=== PATIENT | female | born 1945 | race Two or more races ===

== ENCOUNTER → 2019-04-01 | Outpatient (CLI) | payer OTHER | END | disposition home or self-care (01) | LOC: TOM 09:17 | DX: R93.5 Abnormal findings on diagnostic imaging of other abdominal regions, including retroperitoneum (principal) ==

== ENCOUNTER 2019-07-20 13:39 | Outpatient (CLI) | payer OTHER | END 2019-07-20 13:43 | disposition home or self-care (01) | LOC: LAB 13:39 | DX: R10.31 Right lower quadrant pain (principal) ==

== ENCOUNTER → 2020-10-15 | Emergency (ER) | payer OTHER ==
[~2020-10-15] VITALS: Ht 157.5 cm; Wt 70.8 kg
[~2020-10-15] MED LIST: B COMPLEX1 EACH PO; FERROUS SULFAT325 MG PO; FORTAMET1000 MG PO; IRBESARTAN150 MG PO; METFORMIN HCL1000 M3 PO; RAMIPRIL10 MG PO; SIMVASTATIN20 MG PO; ST. JOSEPH ASPI81 M2 PO; VITAMIN D3250 MCG PO
== END | disposition home or self-care (01) ==
LOC: ER 11:47
DX: E11.9 Type 2 diabetes mellitus without complications (principal); L03.114 Cellulitis of left upper limb; S61.412A Laceration without foreign body of left hand, initial encounter; W26.0XXA Contact with knife, initial encounter; Y93.89 Activity, other specified; Y92.89 Other specified places as the place of occurrence of the external cause; Y99.8 Other external cause status; Z79.84 Long term (current) use of oral hypoglycemic drugs

== ENCOUNTER 2022-06-08 11:01 | Outpatient (CLI) | payer OTHER | END 2022-06-08 11:07 | disposition home or self-care (01) | LOC: RAD 11:01 | PROVIDERS: ATTEND Physical Medicine & Rehabilitation | DX: M53.3 Sacrococcygeal disorders, not elsewhere classified (principal); M54.59 Other low back pain ==

== ENCOUNTER 2024-06-08 09:55 | Outpatient (CLI) | payer OTHER | END 2024-06-08 10:01 | disposition home or self-care (01) | LOC: SONOGRAMA 09:55 | DX: E88.9 Metabolic disorder, unspecified (principal); E80.4 Gilbert syndrome; D64.9 Anemia, unspecified ==

== ENCOUNTER 2024-06-12 23:47 | Inpatient (IN) | payer OTHER ==
[~2024-06-12] VITALS: Ht 157.5 cm; Wt 157.9 kg
--- NOTE | 2024-06-13 00:05 | NUR ---
SE RECIBE FEMINA ALERTA Y ORIENTADA X3 CUAL REFIERE PRESENTA DOLOR ABD Y VOMITOS X3 DESDE LAS 7 PM. SE ANOOP S/V Y SE UBICA. PARAMEDICO VERBALIZA LE ADMINISTRARON ZOFRAN 4MG Y BENTYL 20MG @11:38PM.
--- NOTE | 2024-06-13 01:22 | NUR ---
SE NOTIFICA ESTUDIO ORDENADO.
[2024-06-13] MEDS ORDERED: FAMOtidine 10 MG/ML (4ML VIAL) IV PUSH STA (01:24)
[2024-06-13] MEDS ORDERED: HYOSCYAMINE SULFATE 0.125 MG TAB.SUBL SL ONE (01:30)
[2024-06-13] MEDS ORDERED: HYOSCYAMINE SULFATE 0.125 MG TAB.SUBL ONE (01:33)
[2024-06-13] MEDS ORDERED: FAMOTIDINE/PF 20 MG/2 ML VIAL ONE (01:33)
[2024-06-13] MEDS ORDERED: KETOROLAC TROMETHAMINE 30 MG VIAL IV STA (02:51)
[2024-06-13] MEDS ORDERED: KETOROLAC TROMETHAMINE 30 MG VIAL ONE (02:52)
--- NOTE | 2024-06-13 02:58 | NUR ---
RE-EVALUA PACIENTE. SE ORIENTA SOBRE TX MEDICO, REFIERE ENTENDER. SE REALIZAN MUESTRAS DE LABORATORIO BAJO MEDIDAS ASEPTICAS. SE ADMINISTRA MEDICAMENTO KAMRYN ORDEN MEDICA. SE COORDINA CT. PACIENTE MANEJADA POR .
[2024-06-13 03:30] LABS: HEMATOCRIT 35.2 % (36.0-45.00); HEMOGLOBIN 11.6 g/dL (12.0-15.00); MEAN CELL VOLUME 88.7 fL (80.00-100.00); MEAN CORPUSCULAR HEMOGLOBIN 29.3 pg (27.00-32.0); PLATELET COUNT 245 K/uL (150-450); RED BLOOD COUNT 3.97 M/uL (4.00-6.00); RED CELL DISTRIBUTION WIDTH 13.4 % (11.5-14.5)
[2024-06-13 03:55] LABS: CALCIUM 9.6 mg/dL (8.5-10.1); CREATININE SERUM 0.81 mg/dL (0.55-1.02); GFR 68.03; POTASSIUM 5.13 mEq/L (3.5-5.1)
[2024-06-13] MEDS ORDERED: LIDOCAINE HCL VISCOUS 20MG/ML BLIST 15ML MM ONE (06:21)
--- NOTE | 2024-06-13 07:24 | NUR ---
SE RECIBE A PACIENTE ALERTA Y ORIENTADA X3 EN CAMA A NIVEL DE PISO JUNTO CON BARRANDAS ELEVADAS. CANALIZADA CON #22 EN RT ARM, PATENTE, ARJUN DE EDEMA Y ERITEMA BAJANDO 0.9NSS A 80ML/HR. NGT COLOCADO EN FOSA RT A LIS. PENDIENTE A RE EVALUACION MEDICA.
[2024-06-13] MEDS ORDERED: 0.9 % SODIUM CHLORIDE 1,000 ML IV SCH (16:45)
[2024-06-13] MEDS ORDERED: MORPHINE SULFATE 2 MG/ML CARTRIDGE IV PRN (16:45)
[2024-06-13] MEDS ORDERED: ENALAPRILAT DIHYDRATE 1.25 MG/ML VIAL IV PRN (17:00)
[2024-06-13] MEDS ORDERED: INSULIN LISPRO 1,000 UNIT/10 ML UNITS SUBCUTANEO PRN (17:00)
[2024-06-13] MEDS ORDERED: DEXTROSE 50 % IN WATER 0.5 G/ML DISP.SYRIN IV PRN (17:00)
[2024-06-13] MEDS ORDERED: PIPERACILLIN/TAZOBACTAM SODIUM 3.375 GM VIAL IV ONE (17:28)
[2024-06-13] MEDS ORDERED: PIPERACILLIN/TAZOBACTAM SODIUM 3.375 GM in 0.9 % SODIUM CHLORIDE 100 ML IV SCH (18:00)
[2024-06-13 18:41] LABS: INR 0.99; PARTIAL THROMBOPLASTIN TIME 26.4 SECONDS (22.0-34.0); PROTHROMBIN TIME 10.8 SECONDS (9.0-11.5)
[2024-06-13 18:53] LABS: CALCIUM 9.1 mg/dL (8.5-10.1); T4 FREE 1.26 NG/ML (0.76-1.46); TSH 0.521 uIU/mL (0.358-3.74)
[2024-06-13 18:58] LABS: C-REACTIVE PROTEIN 3.78 MG/DL (0.00-0.29)
[2024-06-13 19:55] LABS: URINE APPEARANCE Clear; URINE BILIRRUBIN Negative (NEGATIVE); URINE BLOOD Negative; URINE COLOR Yellow; URINE GLUCOSE Negative (NEGATIVE); URINE KETONE 15 (NEGATIVE); URINE LEUKOCYTE Trace; URINE NITRATE Negative; URINE PROTEIN Negative (NEGATIVE); URINE UROBILINOGEN 0.2 E.U./dl
[2024-06-13 19:59] LABS: URINE BACTERIA 3175.8 uL (0.0-1933); URINE EPITHELIAL CELLS 28.6 uL (0.0-38.8); URINE RBC 4.7 uL (0.0-20.8); URINE WBC 23.4 uL (0.0-23.2)
[2024-06-13 21:30] VITALS: BP 148/72; O2SAT 95
[2024-06-13] MEDS ORDERED: SODIUM CL 0.9% 100 ML IV.SOLN IV ONE (23:58)
[2024-06-14] VITALS: BP 146/64; O2SAT 97
[2024-06-14 08:00] VITALS: BP 153/71; O2SAT 95
[2024-06-14] MEDS ORDERED: METOCLOPRAMIDE HCL 5 MG/ML VIAL IV SCH (10:21)
[2024-06-14 16:00] VITALS: BP 164/76; O2SAT 96
[2024-06-15 00:20] VITALS: BP 137/70; O2SAT 96
[2024-06-15 08:00] VITALS: BP 171/70; O2SAT 100
[2024-06-15 17:43] VITALS: BP 175/83; O2SAT 98
[2024-06-16 00:10] VITALS: BP 136/69; O2SAT 98
[2024-06-16 07:06] LABS: CA 27.29 37.7 U/mL (0.0-38.6)
[2024-06-16 08:00] VITALS: BP 151/73; O2SAT 95
[2024-06-16 09:10] LABS: CA 15-3 19.8 U/mL (0.0-25.0)
[2024-06-16 10:14] LABS: HEMATOCRIT 33.5 % (36.0-45.00); HEMOGLOBIN 10.9 g/dL (12.0-15.00); MEAN CORPUSCULAR HEMOGLOBIN 29.3 pg (27.00-32.0); MEAN CORPUSCULAR HGB CONC 32.5 g/dl (32.0-36.0); PLATELET COUNT 250 K/uL (150-450); RED BLOOD COUNT 3.72 M/uL (4.00-6.00); RED CELL DISTRIBUTION WIDTH 13.3 % (11.5-14.5)
[2024-06-16 10:58] LABS: ERYTHROCYTE SEDIMENTATION RATE 57 mm/hr
[2024-06-16 11:16] LABS: CALCIUM 9.7 mg/dL (8.5-10.1); CREATININE SERUM 0.78 mg/dL (0.55-1.02); GFR 71.06; POTASSIUM 4.27 mEq/L (3.5-5.1)
[2024-06-16 11:17] LABS: C-REACTIVE PROTEIN 4.74 MG/DL (0.00-0.29)
[2024-06-16 16:00] VITALS: BP 177/82; O2SAT 99
[2024-06-17] VITALS: BP 165/70; O2SAT 99
[2024-06-17 10:22] VITALS: BP 172/68; O2SAT 98
[2024-06-17 17:26] VITALS: BP 165/76; O2SAT 96
[2024-06-18 01:01] VITALS: BP 144/64; O2SAT 95
[2024-06-18] MEDS ORDERED: SODIUM CL 0.9% 100 ML IV.SOLN IV ONE (07:36)
[2024-06-18 10:17] VITALS: BP 174/74; O2SAT 96
== END 2024-06-18 15:29 | disposition home or self-care (01) | DRG 389 ==
LOC: ER 23:47 → SURH 06-13 17:26
PROVIDERS: General Practice; ADMIT Internal Medicine; ATTEND Internal Medicine
PROC: BW21ZZZ Computerized Tomography (CT Scan) of Abdomen and Pelvis (ICD-10-PCS; 2024-06-13)
PROC: 0W993ZX Drainage of Right Pleural Cavity, Percutaneous Approach, Diagnostic (ICD-10-PCS; principal; 2024-06-15)
PROC: BW24YZZ Computerized Tomography (CT Scan) of Chest and Abdomen using Other Contrast (ICD-10-PCS; 2024-06-15)
DX: K56.609 Unspecified intestinal obstruction, unspecified as to partial versus complete obstruction (principal); C79.51 Secondary malignant neoplasm of bone; J90 Pleural effusion, not elsewhere classified; E11.9 Type 2 diabetes mellitus without complications; Z79.4 Long term (current) use of insulin; I10 Essential (primary) hypertension; E78.5 Hyperlipidemia, unspecified; D14.31 Benign neoplasm of right bronchus and lung; D49.1 Neoplasm of unspecified behavior of respiratory system

== ENCOUNTER → 2024-07-14 | Outpatient (CLI) | payer OTHER ==
[2024-07-14 09:20] VITALS: BP 165/79; O2SAT 99
[2024-07-14 11:30] VITALS: BP 209/72; O2SAT 94
[2024-07-14 11:45] VITALS: BP 159/84; O2SAT 98
[2024-07-14 12:00] VITALS: BP 173/78; O2SAT 99
[2024-07-14 12:30] VITALS: BP 160/84; O2SAT 99
== END | disposition home or self-care (01) ==
LOC: TOM 07:50
PROVIDERS: ATTEND Internal Medicine
DX: C34.91 Malignant neoplasm of unspecified part of right bronchus or lung (principal); C79.51 Secondary malignant neoplasm of bone; D49.1 Neoplasm of unspecified behavior of respiratory system; C80.1 Malignant (primary) neoplasm, unspecified

== ENCOUNTER 2024-12-01 10:59 | Outpatient (CLI) | payer OTHER | END 2024-12-01 11:15 | disposition home or self-care (01) | LOC: TOM 10:59 | DX: C34.31 Malignant neoplasm of lower lobe, right bronchus or lung (principal) | CPT/HCPCS: 71260; Q9965 ==

== ENCOUNTER 2025-02-01 12:11 | Outpatient (CLI) | payer OTHER | END 2025-02-01 12:21 | disposition home or self-care (01) | LOC: TOM 12:11 | DX: C34.31 Malignant neoplasm of lower lobe, right bronchus or lung (principal); C79.51 Secondary malignant neoplasm of bone | CPT/HCPCS: 71270; 74170; Q9965 ==